=== PATIENT | male | born 1995 | race Caucasian/White ===

== ENCOUNTER 2017-06-16 16:12 | Emergency (ER) | payer BC, OTHER ==
[~2017-06-16] VITALS: Ht 177.8 cm; Wt 85.1 kg
[~2017-06-16 16:12] MED LIST: HMLI SC; INSDGI SC
[2017-06-16 16:17] VITALS: Ht 177.8 cm; Wt 85.1 kg
[2017-06-16] MEDS ORDERED: INSU100I2 SQ (16:35)
[2017-06-16] MEDS ORDERED: INSDGIPEN SQ (16:35)
[2017-06-16] MEDS ORDERED: XYLOCAINE 1%/SOD BICARB 20 ML VIAL INFIL ONE (16:45)
[2017-06-16] MEDS ORDERED: INSULIN ASPART 100 UNITS/ML 3 ML PEN SC STA (17:02)
--- NOTE | 2017-06-16 17:25 | EMERGENCY ROOM VISIT NOTE ---
History Report prepared by Hardeep: Zeinab Myers Under the Supervision of: Dr. Hunter Cooper M.D. First contact with patient: 16:21 Chief Complaint: GROIN PAIN Stated Complaint: PAIN AND SWELLING History of Present Illness The patient is a 22 year old male who presents to the Emergency Room with complaints of worsening groin pain starting 5 days ago. He notes a bulge just above his penis. He did not have a pimple there. 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 He did not noticed any pops in his groin while working. Today, he was having pain in his groin when lifting. The pain worsens with movement and sitting. It is improved when he is standing still. He has never had this before. His last bowel movement was yesterday. He denies any abdominal pain, melena, hematochezia, fever, chills, cough, congestion, diarrhea, constipation, dysuria, hematuria, or back pain. He has a history of type 1 diabetes. He denies any history of abscess or cellulitis. Source of History: patient Onset: 5 days ago Position: other (groin) Quality: other (pain) Timing: worsening Modifying Factors (Worsening): movement, other (sitting) Modifying Factors (Relieving): other (standing) Associated Symptoms: No fevers, No chills, No cough, No abdominal pain, No back pain, No melena, No hematochezia, No diarrhea, No urinary symptoms Note: Pt reports groin bulge. Pt denies congestion, constipation. Review of Systems See HPI for pertinent positives and negatives. A total of ten systems were reviewed and were otherwise negative. Past Medical & Surgical Medical Problems: (1) Type 1 diabetes Social History Smoking Status: Never Smoker Occupation Status: employed Current/Historical Medications Scheduled Clindamycin Hcl (Clindamycin Hcl), 450 CAP PO QID Insulin Glargine (Lantus Solostar), 50 UNITS SQ QAM Insulin Lispro (Human) (Humalog Kwikpen), 1 DOSE SQ SLIDING SCALE Saccharomyces Boulardii (Florastor), 1 CAP PO BID Allergies Coded Allergies: Cephalexin (Verified Allergy, Unknown, hives, 06/16/17) Physical Exam Vital Signs Date Time Temp Pulse Resp B/P (MAP) Pulse Ox O2 Delivery O2 Flow Rate FiO2 9/18/17 19:45 36.9 78 18 116/73 98 06/16/17 19:06 78 18 116/73 98 Room Air 06/16/17 17:21 91 16 118/74 94 Room Air 06/16/17 16:17 36.9 113 17 130/79 95 Room Air Physical Exam GENERAL: Awake, alert, well-appearing, in no distress HENT: Normocephalic, atraumatic. Oropharynx unremarkable. EYES: Normal conjunctiva. Sclera non-icteric. NECK: Supple. No nuchal rigidity. FROM. No JVD. RESPIRATORY: Clear to auscultation. CARDIAC: Regular rate, normal rhythm. Extremities warm and well perfused. Pulses equal. ABDOMEN: Soft, non-distended. No tenderness to palpation. No rebound or guarding. No masses. RECTAL: Deferred. : 2 cm area of erythema, tenderness, and fluctuance just superior to the glans. No palpable inguinal hernia with cough. Cremaster intact. Bedside ultrasound examination reveals 1 x 2 cm fluid collection consistent with abscess. MUSCULOSKELETAL: Chest examination reveals no tenderness. The back is symmetrical on inspection without obvious abnormality. There is no CVA tenderness to palpation. No joint edema. LOWER EXTREMITIES: Calves are equal size bilaterally and non-tender. No edema. No discoloration. NEURO: Normal sensorium. No sensory or motor deficits noted. SKIN: No rash or jaundice noted. Medical Decision & Procedures ER Provider Diagnostic Interpretation: EM bedside US with 2x1cm fluid collection c/w abscess. Laboratory Results 06/16/17 17:05 Test 06/16/17 17:05 06/16/17 19:27 Anion Gap 9.0 mmol/L (3-11) Est Creatinine Clear Calc Drug Dose 155.4 ml/min Estimated GFR () 149.3 Estimated GFR (Non- 128.8 BUN/Creatinine Ratio 22.2 (10-20) Calcium Level 8.4 mg/dl (8.5-10.1) Beta-Hydroxybutyric Acid 21.81 mg/dL (0.2-2.81) Bedside Glucose 201 mg/dl (70-99) Laboratory results reviewed by me Medications Administered Medications (Trade) Dose Ordered Sig/Matt Route Start Time Stop Time Status Last Admin Dose Admin Insulin Aspart (novoLOG PER UNIT) 8 units NOW ONCE SC 06/16/17 17:30 06/16/17 17:31 DC 06/16/17 17:20 8 UNITS Sodium Chloride 1,000 ml @ 999 mls/hr Q1H1M STAT IV 06/16/17 18:11 06/16/17 19:11 DC 06/16/17 18:26 999 MLS/HR Clindamycin HCl (Cleocin Cap) 450 mg ONE STAT PO 06/16/17 18:11 06/16/17 18:17 DC 06/16/17 19:06 450 MG Procedure Incision & Drainage Indication: Abscess. Location: groin - midline Verbal consent was obtained after the risks and benefits were explained, including but not limited to bleeding, scarring, infection, pain, and bone/joint /nerve damage. At this time, the risks of the procedure are less than the risks of NOT performing the procedure. A time out was taken and the correct patient and site identified. The skin was prepped with betadine and a sterile field set. The wound was anesthetized with 2 ml of 1% lidocaine without epinephrine. The abscess cavity was entered with a number 11 blade and purulent material expressed. Copious irrigation was performed using NS. The wound was explored for loculations. Sterile dressing applied. Detailed wound care instructions and signs and symptoms of worsening infection reviewed with the patient. No complications and the patient tolerated the procedure well. ED Course 1622: The patient was evaluated in room C2B. A complete history and physical exam was performed. 1645: Lidocaine HCl 20 ml INFIL. 1702: Insulin Aspart 8 units SC. Medical Decision I reviewed the patient's past medical history, medications, and the nursing notes as described above. Differential diagnosis: cellulitis, abscess, hernia. Patient is a 22-year-old gentleman with type 1 diabetes on insulin for this emergency department with worsening area of redness and tenderness superior to his penis per history of present illness. The patient is in no acute distress, afebrile stable vital signs. Exam patient has a 2 cm area of erythema, induration, fluctuance lower abdomen proximal to his glans. Otherwise the patient has no direct or indirect hernia appreciated. Moreover reports reports having normal bowel movements. No scrotal, epididymal, testicular pain or swelling. Cremaster reflex intact. Bedside ultrasound shows a 2 x 1 cm fluid collection consistent with abscess. Patient is agreeable for I&D. Finger stick blood glucose elevated to 450s, patient reports not taking insulin insulin this afternoon. We'll give the patient's normal correction of 8 units of Humalog. BMP without gap however elevate BHB. Patient well appearing. Given IVF and repeat FSBG 200s. Given abx. Findings and plan for follow-up d/w patient. Patient agreeable and d/c'd per discharge instructions. Medication Reconcilliation Current Medication List: was personally reviewed by me Impression Primary Impression: Abscess Scribe Attestation The scribe's documentation has been prepared under my direction and personally reviewed by me in its entirety. I confirm that the note above accurately reflects all work, treatment, procedures, and medical decision making performed by me. Departure Information Prescriptions Saccharomyces Boulardii (Florastor) 250 Mg Cap 1 CAP PO BID for 10 Days, #20 CAP Prov: Hunter Cooper M.D. 06/16/17 Clindamycin Hcl (CLINDAMYCIN HCL) 150 Mg Cap 450 CAP PO QID for 7 Days, #28 CAP Prov: Hunter Cooper M.D. 06/16/17 Referrals No Doctor, Assigned (PCP) Patient Instructions Drainage Abscess, [facility] Additional Instructions Please follow up with your primary care physician in the next 1-3 days for re- evaluation. You have a skin infection with an associated abscess, which was drained in the emergency department. Otherwise, your exam, ultrasound, and lab results did not show signs of an emergent condition at this time. Antibiotics as prescribed. Probiotic to decrease the risk of antibiotic associated diarrhea. Return to the emergency department for worsening symptoms as described in the accompanying instructions.
[2017-06-16] MEDS ORDERED: NovoLOG PER UNIT CHARGE SC ONE (17:30)
[2017-06-16 17:44] LABS: BUN/CREATININE RATIO 22.2 (10-20); CALCIUM 8.4 mg/dl (8.5-10.1); CREATININE 0.77 mg/dl (0.60-1.40); POTASSIUM 4.2 mmol/L (3.5-5.1)
[2017-06-16 18:00] LABS: BETA-HYDROXYBUTYRATE 21.81 mg/dL (0.2-2.81)
[2017-06-16] MEDS ORDERED: CLINDAMYCIN HCL 150 MG CAP PO STA (18:11)
[2017-06-16] MEDS ORDERED: SODIUM CHLORIDE 0.9% 1000ML 1,000 ML IV STA (18:11)
[2017-06-16] MEDS ORDERED: SACC250C3 PO (18:21)
[2017-06-16] MEDS ORDERED: CLIN150C15 PO (18:21)
[2017-06-16 19:45] VITALS: BP 116/73; PULSE 78; TEMP 36.9; O2SAT 98
== END 2017-06-16 19:45 | disposition home or self-care (01) ==
LOC: C.EDB 16:13 → C.EDC 19:45
DX: L02.211 Cutaneous abscess of abdominal wall (principal); E10.9 Type 1 diabetes mellitus without complications; Z79.4 Long term (current) use of insulin; Z79.899 Other long term (current) drug therapy; Z88.8 Allergy status to other drugs, medicaments and biological substances